=== PATIENT | female | born 1980 | race Caucasian/White ===

== ENCOUNTER → 2016-10-09 | Outpatient (CLI) | payer MEDICAID | LOC: FIMAGING 13:52 | PROVIDERS: ATTEND Family Medicine | DX: R06.02 Shortness of breath (principal); R07.9 Chest pain, unspecified; Z86.19 Personal history of other infectious and parasitic diseases ==

== ENCOUNTER 2016-10-15 01:56 | Emergency (ER) | payer MEDICAID ==
[2016-10-15 02:02] VITALS: RESP 16; TEMP 98.2
--- NOTE | 2016-10-15 02:09 | CPEKG ---
Heart Rate: 82 RR Interval: 732 P-R Interval: 140 QRSD Interval: 74 QT Interval: 340 QTC Interval: 397 P [place]: 56 QRS [place]: 31 T [place]: 39 EKG Severity - NORMAL ECG - EKG Impression: SINUS RHYTHM Electronically Signed By: Ashanti Wadsworth 15-Oct-2016 06:36:12
[2016-10-15 02:44] LABS: % IMMATURE GRANULYOCYTES 0.5 % (0.0-1.1); ABSOLUTE IMMATURE GRANULOCYTES 0.06 10^3/uL (0.00-0.10); ADD DIFF? NO; ADD MORPH? NO; ADD SCAN? NO; ATYPICAL LYMPHOCYTE FLAG 0 (0-99); FRAGMENT RBC FLAG 0 (0-99); HEMATOCRIT 38.9 % (38.0-47.0); HEMOGLOBIN 12.9 g/dL (12.6-16.3); LEFT SHIFT FLG 0 (0-99); LIPEMIA HEMOLYSIS FLAG 80 (0-99); MEAN CELL HEMOGLOBIN CONCENTR. 33.2 g/dL (32.4-36.7); MEAN CELL VOLUME 84.6 fL (81.5-99.8); MEAN PLATELET VOLUME 9.5 fL (8.7-11.7); PLATELET CLUMPS FLAG 10 (0-99); PLATELET COUNT 342 10^3/uL (150-400); RED CELL DISTRIBUTION WIDTH 12.3 % (11.5-15.2)
[2016-10-15 03:06] LABS: ANION GAP 11 mEq/L (8-16); CALCIUM 9.3 mg/dL (8.5-10.4); CARBON DIOXIDE 21 mEq/l (22-31); CHLORIDE 107 mEq/L (97-110); CREATININE 0.8 mg/dL (0.6-1.0); GLOMERULAR FILTRATION RATE > 60; GLUCOSE 103 mg/dL (70-100); SODIUM 139 mEq/L (134-144)
[2016-10-15 03:18] LABS: TROPONIN I < 0.012 ng/mL (0-0.034)
--- NOTE | 2016-10-15 03:21 | EDPHY ---
H & P Stated Complaint: CP, dyspnea (x1 month) Time Seen by Provider: 10/15/16 02:09 HPI/ROS: HPI The patient presents with chest pain which has been present for the last several hours which started while she was at rest. The pain is sharp and radiates to her arms and neck. It is associated with some numb sensation of her right arm. It has been constant. It is associated with shortness of breath which she has had for the last 1 year. However, her shortness of breath became worse about 1 month ago. She previously was able to walk about half a flight of stairs, now can only walk 15-20 feet without feeling short of breath. She has been evaluated by her primary care physician for this in a few days ago had a noncontrast CT scan of her chest which was unremarkable. She is on Atrovent for this shortness of breath and she uses earlier tonight without any improvement. REVIEW OF SYSTEMS Constitutional: No fever, no chills. Eyes: No discharge. ENT: No sore throat. Cardiovascular: Positive for chest pain, no palpitations. Respiratory: No cough, positive for shortness of breath. Gastrointestinal: No abdominal pain, no vomiting. Genitourinary: No hematuria. Musculoskeletal: No back pain. Skin: No rashes. Neurological: No headache. PMHx: Chronic Lyme disease, POTS Soc Hx: Lives at home PHYSICAL General Appearance: Alert, no distress Eyes: Pupils equal and round no pallor or injection ENT, Mouth: Mucous membranes moist Respiratory: There are no retractions, lungs are clear to auscultation Cardiovascular: Regular rate and rhythm Gastrointestinal: Abdomen is soft and non-tender, no masses, bowel sounds normal Neurological: A&O, moves all extremities Skin: Warm and dry, no rashes Musculoskeletal: Neck is supple non tender Extremities: symmetrical, full range of motion Psychiatric: Patient is oriented X 3, there is no agitation Source: Patient Exam Limitations: No limitations - Personal History LMP (Females 10-55): Now Current Tetanus/Diphtheria Vaccine: Yes - Medical/Surgical History Hx Asthma: No Hx Chronic Respiratory Disease: No Hx Diabetes: No Hx Cardiac Disease: Yes Hx Renal Disease: No Hx Cirrhosis: No Hx Alcoholism: No Hx HIV/AIDS: No Hx Splenectomy or Spleen Trauma: No Other PMH: PSHx: denies. PMHx: Lyme disease, orthostatic tachycardia syndrome - Social History Smoking Status: Never smoked Constitutional: Initial Vital Signs Temperature (C) 36.8 C 10/15/16 01:58 Heart Rate 81 10/15/16 01:58 Respiratory Rate 16 10/15/16 01:58 Blood Pressure 125/75 H 10/15/16 01:58 O2 Sat (%) 96 10/15/16 01:58 O2 Delivery Mode Room Air Allergies/Adverse Reactions: hydroxychloroquine [From Plaquenil] Allergy (Verified 10/15/16 01:57) metronidazole [From Flagyl] Allergy (Verified 02/02/12 13:38) Metronidazole HCl [From Flagyl] Allergy (Verified 02/02/12 13:38) Home Medications: Medication Instructions [facility]ed [facility] 10/15/16 Medical Decision Making - Diagnostics EKG Interpretation: EKG: Complete interpretation has been separately recorded in the [email or web address] archive. Summary impression: Normal sinus rhythm Differential Diagnosis: This is a 36-year-old female with history of chronic Lyme disease per her report , recent negative CT scan of her chest who presents from home with chest pain which is more severe than her usual pain though similar in nature and associated with shortness of breath that she has been dealing with for the last 1 year. Differential diagnosis includes musculoskeletal pain, costochondritis, GERD, less likely ACS or PE. In the emergency room, EKG was obtained and was unremarkable. Basic labs were checked including D-dimer and troponin and these were all normal. I did not repeat any imaging today as she has had a CT scan within the last 1 week of her chest which was unremarkable. She felt better after receiving a dose of Tylenol. The cause of her pain is not clear. She was quite concerned that she has Lyme carditis, I explained that this would be difficult for her to have given that she has been diagnosed with chronic Lyme disease and her illness is not acute and she does not have any heart block on her EKG. She will be discharged home and I have encouraged her to follow up with her primary care doctor. - Data Points Laboratory Results: Laboratory Results 10/15/16 02:30 10/15/16 02:30 10/15/16 10/15/16 10/15/16 02:30 02:30 02:30 WBC 11.26 10^3/uL H 10^3/uL (3.80-9.50) RBC 4.60 10^6/uL 10^6/uL (4.18-5.33) Hgb 12.9 g/dL g/dL (12.6-16.3) Hct 38.9 % % (38.0-47.0) MCV 84.6 fL fL (81.5-99.8) MCH 28.0 pg pg (27.9-34.1) MCHC 33.2 g/dL g/dL (32.4-36.7) RDW 12.3 % % (11.5-15.2) Plt Count 342 10^3/uL 10^3/uL (150-400) MPV 9.5 fL fL (8.7-11.7) Neut % (Auto) 68.0 % % (39.3-74.2) Lymph % (Auto) 22.6 % % (15.0-45.0) [place] % (Auto) 6.8 % % (4.5-13.0) Eos % (Auto) 1.6 % % (0.6-7.6) Baso % (Auto) 0.5 % % (0.3-1.7) Nucleat RBC Rel Count 0.0 % % (0.0-0.2) Absolute Neuts (auto) 7.64 10^3/uL H 10^3/uL (1.70-6.50) Absolute Lymphs (auto) 2.55 10^3/uL 10^3/uL (1.00-3.00) Absolute Monos (auto) 0.77 10^3/uL 10^3/uL (0.30-0.80) Absolute Eos (auto) 0.18 10^3/uL 10^3/uL (0.03-0.40) Absolute Basos (auto) 0.06 10^3/uL 10^3/uL (0.02-0.10) Absolute Nucleated RBC 0.00 10^3/uL 10^3/uL (0-0.01) Immature Gran % 0.5 % % (0.0-1.1) Immature Gran # 0.06 10^3/uL 10^3/uL (0.00-0.10) D-Dimer 0.28 ug/mLFEU ug/mLFEU (0.00-0.50) Sodium 139 mEq/L mEq/L (134-144) Potassium 4.0 mEq/L mEq/L (3.5-5.2) Chloride 107 mEq/L mEq/L (97-110) Carbon Dioxide 21 mEq/l L mEq/l (22-31) Anion Gap 11 mEq/L mEq/L (8-16) BUN 18 mg/dL mg/dL (7-23) Creatinine 0.8 mg/dL mg/dL (0.6-1.0) Estimated GFR > 60 Glucose 103 mg/dL H mg/dL (70-100) Calcium 9.3 mg/dL mg/dL (8.5-10.4) Troponin I < 0.012 ng/mL ng/mL (0-0.034) Departure - Departure Disposition: Home, Routine, Self-Care Clinical Impression: Dyspnea on exertion Chest pain Qualifiers: Chest pain type: unspecified Qualified Code(s): R07.9 - Chest pain, unspecified Condition: Good Instructions: Chest Pain (ED) Additional Instructions: Please follow-up with your primary care doctor in the next 1-2 days if your pain continues. Referrals: Endy Wright, DO [Primary Care Provider] - As per Instructions
[2016-10-15 04:01] VITALS: BP 106/65; PULSE 77; O2SAT 94
== END 2016-10-15 04:01 | disposition home or self-care (01) ==
DX: R07.9 Chest pain, unspecified (principal); R06.00 Dyspnea, unspecified

== ENCOUNTER → 2016-12-27 | Outpatient (CLI) | payer MEDICAID | LOC: FIMAGING 15:33 | PROVIDERS: ATTEND Family Medicine | DX: R51 Headache (principal); R53.1 Weakness; S06.9X9D Unspecified intracranial injury with loss of consciousness of unspecified duration, subsequent encounter ==

== ENCOUNTER 2018-01-30 17:44 | Emergency (ER) | payer MEDICAID ==
--- NOTE | 2018-01-30 18:15 | EDPHY ---
H & P Time Seen by Provider: 01/30/18 17:58 HPI/ROS: HPI Head injury. 37-year-old female by private vehicle with her boyfriend. This patient reports that a clothing iron fell from a shelf and struck her in the right frontal skull yesterday at approximately 2:00 p.m.. She reports that when she got home from work she had a worsening headache and felt very tired. She reports that she slept for a good part of the day. She reports the headache has persisted today and she has also had continued fatigue, blurring of her vision and some dizziness which she describes as a lightheadedness. She has also had some mild nausea but no vomiting. She denies any other complaints. She is not on anticoagulation or antiplatelet agents. ROS: Constitutional: No fever, no chills. As above. Eyes: No discharge. As above. ENT: No sore throat. No nasal congestion or rhinorrhea. Respiratory: No cough. No shortness of breath. Cardiac: No chest pain, no palpitations. Gastrointestinal: No abdominal pain, no vomiting, no diarrhea. Genitourinary: No hematuria. No dysuria or increased frequency with urination. Musculoskeletal: No back pain. No neck pain. No myalgias or arthralgias. Skin: No rashes. Neurological: As above. No focal weakness or altered sensation. Past medical history: Orthostatic tachycardia, mass cell syndrome. Social history: Nonsmoker. No alcohol. Here with her boyfriend. Physical Exam: General Appearance: Alert, no distress. This patient is responding to questions appropriately and in full sentences. This patient appears well- hydrated and well-nourished. Head: Normocephalic atraumatic. Eyes: Pupils equal and round and reactive to light at 3-2 mm bilaterally, no pallor or injection. No lid edema, erythema or injection. Mild photophobia. No nystagmus. ENT, Mouth: Mucous membranes are moist. The pharyngeal tissues are unremarkable. No edema or swelling. No asymmetry suggestive of abscess. No erythema or exudates. Dentition is intact. No tongue lacerations or abrasions. Respiratory: There are no retractions, lungs are clear to auscultation with good air movement bilaterally. Cardiovascular: Regular rate and rhythm. No murmur. Neurological: Motor sensory function is grossly intact. Cranial nerves are normal. Gait is normal. Skin: Warm and dry, no rashes. Musculoskeletal: Neck is supple and nontender. No midline cervical, thoracic tenderness on palpation. Extremities are symmetrical. All joints range without pain or impingement. Psychiatric: No agitation. No depression. Database: EKG: Imaging: CT head without contrast: Negative. Results were discussed with staff radiologist Dr. Mika Barth. Procedures: Emergency department course: Triage vital signs reviewed and are normal. The patient is afebrile. Patient' s presentation is consistent with a concussion syndrome. 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 CT head without contrast will be obtained. The patient endorses this. 6:40 p.m., patient re-evaluated, resting comfortably at this time. Repeat neurologic Assessment is nonfocal. She is up and ambulatory with a normal gait. Results of CT scan and diagnosis of concussion syndrome discussed with her. I discussed follow-up with Dr. Vasques through the [facility]ussion [facility] within the next 1-2 days. She feels comfortable going home with her boyfriend who will be driving. Return to emergency department precautions reviewed with her. Ibuprofen dosing discussed for headache. I will also prescribe her Zofran for nausea. Return to emergency department precautions were thoroughly reviewed with her. All of her questions were answered. The patient was discharged in good condition.. Differential Diagnosis: The differential diagnosis on this patient includes but is not limited to concussion syndrome. Epidural hematoma, traumatic subarachnoid hemorrhage, subdural hematoma, other significant traumatic injury unlikely. This represents a partial list of diagnoses considered. These considerations are based on history, physical exam, past history, reassessment and diagnostic testing. Smoking Status: Never smoked Constitutional: Initial Vital Signs Temperature (C) 37 C 01/30/18 18:01 Heart Rate 92 01/30/18 18:01 Respiratory Rate 16 01/30/18 18:01 Blood Pressure 133/87 H 01/30/18 18:01 O2 Sat (%) 96 01/30/18 18:01 O2 Delivery Mode Room Air Allergies/Adverse Reactions: hydroxychloroquine [From Plaquenil] Allergy (Verified 10/15/16 01:57) influenza virus vaccine, specific Allergy (Verified 01/30/18 18:04) metronidazole [From Flagyl] Allergy (Verified 02/02/12 13:38) Metronidazole HCl [From Flagyl] Allergy (Verified 02/02/12 13:38) Home Medications: Medication Instructions Recorded Cromolyn Sodium 01/30/18 Ketotifen Fumarate 01/30/18 Montelukast Sodium 01/30/18 Ondansetron Odt [Zofran Odt 4 mg 4 mg PO Q4PRN PRN #10 tab 01/30/18 (*)] VYVANSE 01/30/18 Departure - Departure Disposition: Home, Routine, Self-Care Clinical Impression: Concussion syndrome Condition: Good Instructions: Concussion (ED) Additional Instructions: Read and follow provided instructions. Follow-up with Dr. Vasques with the concussion Clinic for re-evaluation and further management within the next 1-2 days. Take medication as prescribed for nausea. Ibuprofen dosin mg every 6 hours with meals for the next 3 days only. Take only as needed for headache. Return to the emergency department for worsening symptoms, worsening headache, nausea and vomiting, confusion or other serious concerns. Referrals: Michelle Vasques MD [Medical Doctor] - As per Instructions Prescriptions: Ondansetron Odt [Zofran Odt 4 mg (*)] 4 mg PO Q4PRN PRN #10 tab PRN Reason: For Nausea & Vomiting
[2018-01-30 18:26] VITALS: BP 125/84
== END 2018-01-30 18:39 | disposition home or self-care (01) ==
DX: F07.81 Postconcussional syndrome (principal); W20.8XXA Other cause of strike by thrown, projected or falling object, initial encounter